=== PATIENT | female | born 1945 | race Caucasian/White ===

== ENCOUNTER 2017-02-08 05:30 | Day surgery (SDC) | payer OTHER ==
[2017-02-07 08:58] LABS: MANUAL DIFF NEEDED? NO
[2017-02-07 09:10] LABS: BASO% 0.2 % (0.0-0.8); EOS# 0.39 X1000 (0.0-0.7); HEMOGLOBIN 12.5 g/dL (12.0-16.0); IMM GRAN# 0.06 X1000 (0.0-0.04); IMM GRAN% 0.5 % (0.0-0.5); LYMPH# 2.44 X1000 (1.2-3.4); LYMPH% 18.6 % (20.5-51.1); MCH 29.6 PG (27-31); MCHC 32.1 g/dL (33-37); MCV 92.2 FL (81-99); MONO# 1.09 X1000 (0.11-0.59); MONO% 8.3 % (1.7-9.3); MPV 10.3 FL (7.4-10.4); NEUT% 69.4 % (42.2-75.2); PLT 268 X1000 (130-400); RBC 4.23 XMIL (4.2-5.4)
[2017-02-07 09:23] LABS: INR 0.96; PROTIME 9.8 Seconds (9.2-11.7); PTT 26.1 Seconds (22.0-36.0)
[2017-02-07 10:11] LABS: ALBUMIN 4.1 g/dL (3.5-5.0); CALCIUM 9.9 mg/dL (8.8-10.2); POTASSIUM 4.4 mmol/L (3.5-5.1); TOTAL BILIRUBIN 0.26 mg/dL (0.20-1.00); TOTAL PROTEIN 7.1 g/dL (6.3-8.3)
[2017-02-08] MEDS ORDERED: NS 1,000 ML ONE ×2 (06:19→09:37)
[2017-02-08] MEDS ORDERED: NS ONE (07:02)
[2017-02-08] MEDS ORDERED: HEPARIN ONE (07:02)
--- NOTE | 2017-02-08 07:20 | EKG Report ---
Test Performed on : 02/08/2017 06:02:49 AM Test Reason : ORDER: CATH PROCEDURE THIS AM Blood Pressure : / mmHG Vent. Rate : 069 BPM Atrial Rate : 069 BPM P-R Int : 344 ms QRS Dur : 106 ms QT Int : 434 ms P-R-T Axes : 049 101 025 degrees QTc Int : 465 ms Sinus rhythm. with 1st degree AV block. Rightward axis Septal infarct , age undetermined Abnormal ECG When compared with ECG of 26-JUN-2010 20:48, Significant changes have occurred Confirmed by Piyush KENDALL, Ramon Barrera ([id number]) on 02/08/2017 3:23:36 PM
[2017-02-08] MEDS ORDERED: VERSED ONE (07:30)
[2017-02-08] MEDS ORDERED: DEMEROL ONE (07:31)
[2017-02-08] MEDS ORDERED: NITROGLYCERIN ONE (07:34)
[2017-02-08] MEDS ORDERED: NS 250 ML ONE (07:34)
--- NOTE | 2017-02-08 09:54 | CARDIAC CATH REPORT ---
DATE: 02/08/2017 PROCEDURE: 1. Right heart catheterization. 2. Left heart catheterization. 3. Selective coronary angiogram. 4. Left ventriculogram. 5. Opacification of the right femoral artery with deployment of a 6-Maldivian Angio-Seal device. HISTORY: Mrs. Monge is a pleasant 71-year-old female who is status post mitral valve replacement who presented to my office with increasing dyspnea. 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 However, at that time, the patient was minimally symptomatic. She had just lost her , and she was really not in any mental or psychological status to pursue any further testing. Over the course of the past few weeks, she has gradually improved. However, she has started to develop a significant increasing dyspnea and presented to the office on followup. We did a transthoracic echo that showed definitely markedly increased gradient across the mitral valve suggesting a combination of a stenosis with regurgitation. A proBNP level was elevated. We felt that the patient had reached the point where the mitral valve needed to be addressed. Benefits, risks, complications of cardiac catheterization were explained to the patient in detail. She understood and requested to proceed. DESCRIPTION OF PROCEDURE: The patient came into the cardiac clinical laboratory scientist in the fasting state. The right groin was prepped and draped in sterile fashion, anesthetized with lidocaine 1%. She received 1 mg of Versed, 25 mg of Demerol. The 6-Maldivian sheath was inserted into her right femoral vein by following the modified Seldinger technique. Using a [place]-Pili catheter, thermodilution, the pulmonary pressure was measured, then the pulmonary capillary wedge pressure was measured. Serial cardiac outputs were obtained by thermodilution. Sample of blood was drawn for Jose cardiac output. Then we put arterial sheaths, 6-Maldivian, in the right femoral artery, and then we advanced a pigtail catheter to the central aorta. The central aortic pressure was measured. Blood was drawn from the femoral artery for Jose cardiac output. We crossed the aortic valve, and then we measured simultaneous pressures between the pulmonary capillary wedge and the left ventricle. A significant variant was documented. Then we performed a left ventriculogram in the 30-degree VEE projection by injecting 40 mL of Omnipaque at 12 mL per second. Then the [place]-Pili catheter was used to remeasure the pressures again simultaneously between the wedge and the LV. Again, the pulmonary gradient was documented. Then the [place]-P[place] catheter was pulled back from the pulmonary artery into the right ventricle and right atrium. The pressure was determined at each level. Then the [place]-Pili catheter was removed. The venous sheath was flushed. Then the pigtail catheter was pulled back into the central aorta. There was no gradient across the aortic valve. Then the coronaries were opacified with 6-Maldivian left Allen 4 and right Allen 4 catheters. Finally, we removed all the catheters. The femoral artery was opacified. Angio-Seal device was deployed. Some oozing of blood was noted after deployment of the Angio-Seal device. We removed the femoral sheath, and hemostasis was accomplished by hand compression. The patient tolerated the procedure well without any significant complication. SUMMARY OF THE HEMODYNAMIC FINDINGS: Initial pulmonary arterial pressure was 70/23 with a mean of 43. Initial pulmonary wedge pressure was a=24, v=29, and mean pressure was 28. The cardiac output by thermodilution averaged 5.43 with an index of 2.9. The Jose cardiac output was 6.33. Then the central aortic pressure was 137/58, the left ventricular pressure was 141/9. The simultaneous wedge versus LV was a=25, V wave was 50, and the mean was 35. The LVEDP was 10. There was a gradient of 25 mm across the mitral valve. The mitral valve area was measured, calculated at 0.86 cm2, which is severe. Post LV gram, the left ventricular pressure was 137/10, the pulmonary wedge post LV gram a=34, v=70, mean 46. The gradient increased there significantly. The pulmonary arterial pressure post LV gram was 81/31 with a mean of 53. Right ventricular pressure was 79/12, right atrial pressure was a=15, v=39, mean 21. The final left ventricular pressure was 134/9. Final central aortic pressure 139/55. The femoral artery saturation was 95%, pulmonary artery saturation was 72%. In summary, these hemodynamics indicate significant pulmonary hypertension, a significant gradient across the mitral valve. 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 The LVEDP is normal. SUMMARY OF THE CORONARY ARTERIOGRAM: 1. Left main coronary artery: The left main coronary artery is anatomically normal, divides into LAD and circumflex. 2. Left anterior descending coronary artery: This vessel is anatomically normal, gives rise to 2 diagonal branches. It wraps around the apex of the left ventricle as a normal vessel. 3. Circumflex coronary artery: The circumflex is a nondominant system. It gives rise to a sinus leonel branch, a tiny proximal high lateral branch, and a distal good-sized obtuse marginal vessel. 4. Right coronary artery: The right coronary artery is a good-sized dominant system that supplies branches to the right ventricle, the conus, the posterior descending artery, and the posterolateral system which is very extensive. LEFT VENTRICULOGRAM: Left ventriculogram in the 30-degree VEE projection with caudal angulation indicates good left ventricular contractility. The chamber is somewhat enlarged with moderate to moderately severe degree of mitral regurgitation, 2+ to 3+. There is a bioprosthetic valve sitting in the mitral position that appears to have a little more rocking motion than usual. There is also significant calcification of the mitral annulus. No other major abnormalities noted. There are sternal wires noted in the chest. OPACIFICATION OF THE RIGHT FEMORAL ARTERY: The right femoral artery is unremarkable. Angio-Seal device was deployed. IMPRESSION: In summary, this study shows: 1. 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 2. Moderate to moderately severe degree of mitral regurgitation. 3. Normal left ventricular systolic function. 4. Normal epicardial coronary arteries. 5. Normal LVEDP. 6. No evidence of aortic stenosis. 7. Unremarkable right femoral artery. RECOMMENDATION: The patient will be referred for surgical management of the degenerated bioprosthetic mitral valve. The patient will be observed today and will be discharged later on.
--- NOTE | 2017-02-08 12:02 | EKG Report ---
Test Performed on : 02/08/2017 09:13:03 AM Test Reason : post heart cath Blood Pressure : / mmHG Vent. Rate : 064 BPM Atrial Rate : 064 BPM P-R Int : 288 ms QRS Dur : 140 ms QT Int : 486 ms P-R-T Axes : 063 106 052 degrees QTc Int : 501 ms Sinus rhythm. with 1st degree AV block. Nonspecific intraventricular block Anterolateral infarct (cited on or before 08-FEB-2017) Abnormal ECG When compared with ECG of 08-FEB-2017 06:02, (Unconfirmed) QRS duration has increased Questionable change in initial forces of Anterolateral leads T wave amplitude has increased in Anterior leads Confirmed by Piyush KENDALL, Ramon Barrera ([id number]) on 02/08/2017 3:24:04 PM
[2017-02-08 14:48] VITALS: BP 124/67
== END 2017-02-08 14:50 | disposition home or self-care (01) ==
LOC: OPS 05:30
PROVIDERS: ATTEND Internal Medicine Cardiovascular Disease
DX: I05.0 Rheumatic mitral stenosis (principal); Z95.2 Presence of prosthetic heart valve; I27.2 Other secondary pulmonary hypertension; I48.91 Unspecified atrial fibrillation; I50.32 Chronic diastolic (congestive) heart failure; E66.9 Obesity, unspecified; I11.0 Hypertensive heart disease with heart failure; E78.5 Hyperlipidemia, unspecified; E11.9 Type 2 diabetes mellitus without complications; M19.90 Unspecified osteoarthritis, unspecified site; R06.00 Dyspnea, unspecified; Z68.31 Body mass index [BMI] 31.0-31.9, adult; Z82.49 Family history of ischemic heart disease and other diseases of the circulatory system; Z79.84 Long term (current) use of oral hypoglycemic drugs; Z79.899 Other long term (current) drug therapy; Z79.82 Long term (current) use of aspirin; Z82.3 Family history of stroke
CPT/HCPCS: 80053; 85025; 85610; 85730; 93005; 93010; 93460; C1760; J1644; J2175; J2250; J7030; J7050; Q9967